=== PATIENT | male | born 2005 | race Caucasian/White ===

== ENCOUNTER 2023-10-24 15:37 | Emergency (ER) | payer BC, SELFPAY ==
[2023-10-24 15:38] VITALS: BP 147/83; PULSE 76; RESP 16; TEMP 36.6; O2SAT 98
--- NOTE | 2023-10-24 18:37 | ED.SKABFB ---
HPI - Skin/Abscess/Foreign Bdy General Chief complaint: Skin/Abscess/Foreign Body Stated complaint: abcess Time Seen by Provider: 10/24/23 17:34 Source: patient Mode of arrival: ambulatory Limitations: no limitations History of Present Illness HPI narrative: This is a 18-year-old male that presents to the emergency department for a pilonidal cyst. Reports over the last wee the area has become painful. Reports he has had some drainage from the area. Denies fevers. Related Data Allergies Allergy/AdvReac Type Severity Reaction Status Date / Time No Known Allergies Allergy Verified 10/24/23 15:41 Review of Systems Review of Systems: CONSTITUTIONAL: Denies fever SKIN: Reports redness and swelling All systems reviewed & are unremarkable except as noted in HPI and below PMFSH Past Medical History Medical History Adult BMI 33.0-33.9 kg/sq m Surgical History Surgical History (Updated 05/09/23 @ 16:05 by Cynthia Hurtado MA) Fracture surgery repair for a wrist fracture when pt was 13 y/o Family History Family History Other Diabetes mellitus Heart disease Social History Social History Smoking status: Never smoker Second hand tobacco smoke exposure: No Alcohol intake: never Substance use: never Substance use type: does not use Exam Narrative: GENERAL: Well-appearing, well-nourished, and in no acute distress. HEAD: Normocephalic, atraumatic. EYES: EOMI. CHEST: No respiratory distress. HEART: Regular rate EXTREMITIES: Normal range of motion. No edema. SKIN: Warm, dry, no rash. Area of erythema and edema with central punctum in the pilonidal area NEURO: No focal deficits. Alert and oriented x3. PSYCH: Normal mood and affect Course Course Emergency Course: Patient and family educated on wound care Vital Signs Vital signs: Vital Signs Temperature 97.9 F 10/24/23 15:38 Pulse Rate 76 10/24/23 15:38 Respiratory Rate 16 10/24/23 15:38 Blood Pressure 147/83 H 10/24/23 15:38 Pulse Oximetry 98 10/24/23 15:38 Temperature 97.9 F 10/24/23 15:38 Pulse Rate 76 10/24/23 15:38 Respiratory Rate 16 10/24/23 15:38 Blood Pressure 147/83 H 10/24/23 15:38 Pulse Oximetry 98 10/24/23 15:38 Procedures Abscess I/D other: Date of Incision: 10/24/23 Time of Incision: 19:53 Local Anesthetic: lidocaine 1% and with epi Amount of anesthesia used (mL): 3 Technique: incised with #11 blade Irrigation: Yes Packing used?: plain I&D Results: Pus and Blood MDM - Skin/Abscess/Foreign Bdy MDM Narrative Medical decision making narrative: Patient presents to the emergency department for pilonidal abscess. He is afebrile and nontoxic appearing. Abscess was successfully drained. Patient and family educated on further wound care. He does have follow-up with Dr. Gonzalez this Tuesday. Will be started on oral antibiotics. He was given warnings to return to the ER Differential Diagnosis Differential diagnosis: Likely abscess of skin or subcutaneous tissue and other (cyst) Critical Care Time Critical Care Time Critical Care Time: No Discharge Plan Discharge Clinical Impression: Pilonidal abscess Patient Disposition: Home, Self-Care Condition: Stable Instructions: Antibiotic Form, Pilonidal Cyst (ED) Additional Instructions: Return if symptoms worsen or concerns: any increase in redness, swelling, pain or fever over 101 Take antibiotics as directed. Clean wound with mild soapy water. Apply antibiotic ointment and clean dressing at least three times daily. Warm compresses 3 times a day for 20 minutes each Follow up with your general surgeon for re-evaluation. Packing needs to be removed in 2-3 days Prescriptions: New sulfamethoxazole-trimet
== END 2023-10-24 20:08 | disposition home or self-care (01) ==
PROVIDERS: Emergency Provider Physician Assistant; PCP Family Medicine
DX: L05.01 Pilonidal cyst with abscess (principal)
CPT/HCPCS: 10080; 87070; 87205; 99283

== ENCOUNTER 2025-08-01 15:36 | Emergency (ER) | payer BC, SELFPAY ==
[2025-08-01 17:02] VITALS: BP 154/79; PULSE 97; RESP 16; TEMP 36.4; O2SAT 100
--- OUTSIDE RECORDS SUMMARY | 2025-08-01 18:10 | XMS_ITS | Clinical Summary ---
Author Organization [facility] Address [address] [place] [address] Care Team Providers Care Heating Engineer Name Role Phone David Gentile MD Primary Care Provider [phone] Source Comments [facility],non-owned Affiliates and Associated Physician Practices is amultiple site organization consisting of ambulatory clinics and hospital sitesin [place], [place], [place] and [place]. This disclosure is being madepursuant to the Care Everywhere program and may not contain all information available regarding this patient. Last updated 18.[facility] Allergies No known active allergies Medications * Be aware that medications may not be up to date on this document. Alwaysverify current medications with the patient. 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 Gender Identity Not on file Sexual Orientation Not on file Last Filed Vital Signs Vital Sign Reading Time Taken Comments Blood Pressure 120/80 08/01/2018 12:41 PM PHILOSOPHY INSTRUCTOR Pulse 68 08/01/2018 12:41 PM PHILOSOPHY INSTRUCTOR Temperature 36.7 C (98.1 F) 08/01/2018 12:41 PM PHILOSOPHY INSTRUCTOR Respiratory Rate 16 08/01/2018 12:41 PM PHILOSOPHY INSTRUCTOR Oxygen Saturation 98% 08/01/2018 12:41 PM PHILOSOPHY INSTRUCTOR Inhaled Oxygen Concentration - - Weight 81.3 kg (179 lb 3.7 oz) 02/13/2019 1:57 P M CDT Height 168.6 cm (5' 6.38) 02/13/2019 1:57 PM CD T Body Mass Index 28.6 02/13/2019 1:57 PM CDT Plan of Treatment Health Maintenance Due Date Last Done Comments HIV SCREENING 2018 HPV VACCINE (1 - Male 3-dose series) 2018 MENINGOCOCCAL (Group B) VACC INE SHARED DECISION-MAKING (1 of 2 - Standard) 2019 HEPATITIS C SCREENING 08/31/2021 DTAP/TDAP/TD VACCINES (1 - Tdap) 2022 HEPATITIS B VACCINE (1 of 3 - 19+ 3-dose series) 2022 DEPRESSION SCREENING 09/12/2024 COVID-19 VACCINE (1 - 2024-2 6 season) 2025 INFLUENZA VACCINE (#1) 2025 ZOSTER VACCINE (1 of 2) 2053 HIB VACCINE Aged Out No longer eligi ble based on patient's age to complete this topic MENINGOCOCCAL GROUPS A/C/Y/W VACCINE Aged Out No longer eligible b ased on patient's age to complete this topic PNEUMOCOCCAL VACCINE Aged Out No long er eligible based on patient's age to complete this topic Insurance [facility] Care Teams Heating Engineer Relationship Specialty Start Date End Date David Gentile MD [address] [place] [address] PCP - General Family Medicine 08/01/18
--- NOTE | 2025-08-01 22:41 | ED_ITS ---
HPI - General Adult General Chief complaint: Skin/Abscess/Foreign Body <IRENE Canela - Last Filed: 08/02/25 03:20> Stated complaint: cyst on tailbone <IRENE Canela - Last Filed: 08/02/25 03:20> Time Seen by Provider: 08/01/25 20:37 <IRENE Canela - Last Filed: 08/02/25 03:20> History of Present Illness HPI narrative: 19-year-old male presenting with concerns for a pilonidal cyst. 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 Reports he noticed this new cyst about 1 month ago. Pain became unbearable in the last few days. Denies fever/chills, nausea/vomiting, or urinary/bowel concerns. <IRENE Canela - Last Filed: 08/02/25 03:20> Related Data Allergies/adverse reactions: Allergies Allergy/AdvReac Type Severity Reaction Status Date / Time No Known Allergies Allergy Verified 08/01/25 17:08 <IRENE Canela - Last Filed: 08/02/25 03:20> Review of Systems Review of Systems: All systems reviewed & are unremarkable except as noted in HPI and below <IRENE Canela - Last Filed: 08/02/25 03:20> PMF Past Medical History Medical History: Medical History Adult BMI 33.0-33.9 kg/sq m <IRENE Canela - Last Filed: 08/02/25 03:20> Surgical History Surgical History: Surgical History Fracture surgery repair for a wrist fracture when pt was 13 y/o <IRENE Canela - Last Filed: 08/02/25 03:20> Family History Family History: Family History Other Diabetes mellitus Heart disease <IRENE Canela Last Filed: 08/02/25 03:20> Social History Social History: Social History Smoking status: Never smoker Second hand tobacco smoke exposure: No Alcohol intake: never Substance use: never Substance use type: does not use <IRENE Canela - Last Filed: 08/02/25 03:20> Exam Narrative: GENERAL: Well-appearing, well-nourished, and in no acute distress. HEAD: Normocephalic, atraumatic. EYES: PERRLA and EOMI. ENT: Nares clear, no rhinorrhea or epistaxis. Mucous membranes moist. Oropharynx without tonsillar hypertrophy exudate or other lesions. Bilateral TMs pearly addison non-bulging NECK: Supple. No adenopathy or masses. No carotid bruits or JVD CHEST: Clear to auscultation. No respiratory distress. No wheezes rales or rhonchi HEART: Regular rate and rhythm. No murmur heard. Normal peripheral pulses. ABDOMEN: Soft, nontender, nondistended, normal active bowel sounds. BACK: Localized redness centered in the intergluteal crease consistent with early pilonidal inflammation. EXTREMITIES: Normal range of motion. No edema. SKIN: Warm, dry, no rash. NEURO: No focal deficits. Alert and oriented x3. PSYCH: Normal mood and affect <IRENE Canela - Last Filed: 08/02/25 03:20> Course ADMINISTRATIVE JOB TITLES/PA Physician Supervision This visit was performed by both a physician and an APC. I performed all aspects of the MDM as documented. <Eric Mckeon MD - Last Filed: 08/01/25 23:08> Vital Signs Vital signs: Vital Signs Temperature 97.6 F 08/01/25 17:02 Pulse Rate 97 08/01/25 17:02 Respiratory Rate 16 08/01/25 17:02 Blood Pressure 154/79 H 08/01/25 17:02 Pulse Oximetry 100 08/01/25 17:02 Oxygen Delivery Room Air 08/01/25 17:02 Temperature 98 F 08/01/25 23:24 Pulse Rate 91 08/01/25 23:24 Respiratory Rate 15 08/01/25 23:24 Blood Pressure 149/81 H 08/01/25 23:24 Pulse Oximetry 99 08/01/25 23:24 Oxygen Delivery Room Air 08/01/25 17:02 <IRENE Canela - Last Filed: 08/02/25 03:20> Vital Signs Temperature 97.6 F 08/01/25 17:02 Pulse Rate 97 08/01/25 17:02 Respiratory Rate 16 08/01/25 17:02 Blood Pressure 154/79 H 08/01/25 17:02 Pulse Oximetry 100 08/01/25 17:02 Oxygen Delivery Room Air 08/01/25 17:02 Temperature 98 F 08/01/25 23:24 Pulse Rate 91 08/01/25 23:24 Respiratory Rate 15 08/01/25 23:24 Blood Pressure 149/81 H 08/01/25 23:24 Pulse Oximetry 99 08/01/25 23:24 Oxygen Delivery Room Air 08/01/25 17:02 <Eric Mckeon MD - Last Filed: 08/01/25 23:08> Medical Decision Making MDM Narrative Medical decision making narrative: 19-year-old male presenting with concerns for a pilonidal cyst. 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 Reports he noticed this new cyst about 1 month ago. Reports the pain became unbearable in the last few days. Denies fever/chills, nausea/vomiting, or urinary/bowel concerns. Patient presents with localized pain and swelling over the superior gluteal cleft consistent with uncomplicated pilonidal disease. On exam there is mild erythema and tenderness without fluctuance, drainage, sinus tract opening, or evidence of abscess formation. No systemic symptoms. Differential includes pilonidal cyst, superficial cellulitis, folliculitis, and early abscess; however, lack of fluctuance or induration makes abscess unlikely at this time. US also demonstrated no significant abscess formation. Given that the lesion is not fluctuant and does not require incision and drainage, management is conservative outpatient antibiotics to address surrounding cellulitis. Patient is well appearing, hemodynamically stable, and safe for discharge with Augmentin. Strict return precautions given for worsening pain, fever, drainage, or development of fluctuance, which would warrant re-evaluation for possible I& D. Patient is already scheduled to see general surgery outpatient for these concerns. Patient verbalized understanding and agrees with plan. Given reasons to return. <IRENE Canela - Last Filed: 08/02/25 03:20> Medical Records Medical records reviewed: Yes I reviewed the external patient's medical records. <IRENE Canela - Last Filed: 08/02/25 03:20> Vital Signs Vital Signs: Vital Signs Temperature 97.6 F 08/01/25 17:02 Pulse Rate 97 08/01/25 17:02 Respiratory Rate 16 08/01/25 17:02 Blood Pressure 154/79 H 08/01/25 17:02 Pulse Oximetry 100 08/01/25 17:02 Oxygen Delivery Room Air 08/01/25 17:02 Temperature 98 F 08/01/25 23:24 Pulse Rate 91 08/01/25 23:24 Respiratory Rate 15 08/01/25 23:24 Blood Pressure 149/81 H 08/01/25 23:24 Pulse Oximetry 99 08/01/25 23:24 Oxygen Delivery Room Air 08/01/25 17:02 <IRENE aCnela - Last Filed: 08/02/25 03:20> Vital Signs Temperature 97.6 F 08/01/25 17:02 Pulse Rate 97 08/01/25 17:02 Respiratory Rate 16 08/01/25 17:02 Blood Pressure 154/79 H 08/01/25 17:02 Pulse Oximetry 100 08/01/25 17:02 Oxygen Delivery Room Air 08/01/25 17:02 Temperature 98 F 08/01/25 23:24 Pulse Rate 91 08/01/25 23:24 Respiratory Rate 15 08/01/25 23:24 Blood Pressure 149/81 H 08/01/25 23:24 Pulse Oximetry 99 08/01/25 23:24 Oxygen Delivery Room Air 08/01/25 17:02 <Eric Mckeon MD - Last Filed: 08/01/25 23:08> Discharge Plan Discharge Clinical Impression: Pilonidal abscess <IRENE Canela - Last Filed: 08/02/25 03:20> Patient Disposition: Home <IRENE Canela - Last Filed: 08/02/25 03:20> Condition: Stable <IRENE Canela - Last Filed: 08/02/25 03:20> Instructions: Antibiotic Form, Pilonidal Cyst (ED) <IRENE Canela - Last Filed: 08/02/25 03:20> Additional Instructions: Return if symptoms worsen or concerns: any increase in redness, swelling, pain or fever over 101 Take antibiotics as directed. Warm compresses 3 times a day for 30 minutes each Keep your appointment with general surgery. Follow-up with pcp for any other general concerns. <IRENE Canela - Last Filed: 08/02/25 03:20> Patient Language: Maltese <IRENE Canela - Last Filed: 08/02/25 03:20> Prescriptions: New amoxicillin-pot clavulanate [Augmentin] 500-125 mg tablet 1 tablet PO TID Qty: 22 0RF hydrocodone-acetaminophen 5-325 mg tablet 1 tablet PO Q6H PRN (Reason: pain) Qty: 10 0RF No Action sulfamethoxazole-trimethoprim 800-160 mg tablet 1 tablet PO Q12H 7 Days Qty: 14 0RF <IRENE Canela - Last Filed: 08/02/25 03:20> Follow-up/Referrals: David Gentile MD [Primary Care Provider, Family Practice] <IRENE Canela - Last Filed: 08/02/25 03:20>
[2025-08-01 22:43] VITALS: BP 149/81; PULSE 91; RESP 15; TEMP 36.6; O2SAT 99
[2025-08-01] MEDS: HYDROcodone/acetaminophen (*CRX) 5-325 MG TABLET 1 TAB PO (23:09)
[2025-08-01] MEDS: KETOROLAC (*BKC) 60 MG/2 ML VIAL IM (23:10)
[2025-08-01 23:24] VITALS: BP 149/81; PULSE 91; RESP 15; TEMP 36.6; O2SAT 99
== END 2025-08-01 23:26 | disposition home or self-care (01) ==
PROVIDERS: PCP Family Medicine
DX: L05.01 Pilonidal cyst with abscess (principal)
CPT/HCPCS: 96372; 99283; A9270; J1885